=== PATIENT | female | born 1975 | race African-American/Black ===

== ENCOUNTER 2020-02-10 09:23 | Emergency (ER) | payer BC ==
[~2020-02-10] VITALS: Ht 162.6 cm; Wt 78.0 kg
--- NOTE | 2020-02-10 09:54 | Emergency Department Note ---
History of Present Illnes History of Present Illness Chief Complaint: Abdominal Complaints History of Present Illness This is a 44 year old female, with a history of HTN, who presents with a 2.5 - 3 week history of constipation. Pt states that she has a long history of constipation, and that she was diagnosed with "slow transit" constipation. Pt took a bottle of Magnesium Citrate on 01/23/20, an enema on 02/05/2020, and she drank some "smooth move" tea yesterday. She states that she "passed a few cyndi," hard stool yesterday. She states that she typically has BM 1x/week. She has had some mild nausea, but no vomiting, with mild abdominal cramping. These symptoms are similar to what she has had in the past, whenever she has had constipation. She denies any fever, chills, or dysuria. Pt states that she has taken Amitiza and Linzess in the past, without success in relieving her symptoms. Her blood pressure is also elevated today, and she states that she just took her B/P meds, [employer]. She denies any HUNTER, dizziness, visual changes, numbness or tingling. Historian: Patient Arrival Mode: Car Rn Radiation Oncology Required: No Onset (how long ago): week(s) (3) Location: general abdomen Quality: cramping Radiation: Reports non-radiation Severity: mild Onset quality: gradual Duration (how long): week(s) (3) Timing of current episode: constant Progression: unchanged Chronicity: recurrent Context: Denies recent illness, Denies recent surgery, Denies hx of DVT/PE Relieving factors: none Exacerbating factors: none Associated symptoms: Reports denies other symptoms, Reports nausea/vomiting (withtout vomiting); Denies cough, Denies loss of appetite, Denies shortness of breath Treatments prior to arrival: other (see HPI) Risk factors: "slow transit" constipation Past Medical/Family History Physician Review I have reviewed the patient's past medical and family history. Any updates have been documented here. Past Medical History Recent Fever: No Clinical Suspicion of Infectio: No New/Unexplained Change in Ment: No Past Medical History: Hypertension Other Medical History: Constipation - slow transit Past Surgical History: None Social History Smoking Cessation: Never Smoker Alcohol Use: Occasional Any Illegal Drug Use: No TB Exposure/Symptoms: No Physically hurt or threatened: No Family History Family history of heart diseas: No Other Any Pre-Existing Lines (PICC,: No Is patient up to date on immun: Yes Review of Systems Review of Systems Constitutional: Denies chills, Denies fever EENTM: Reports no symptoms Cardiovascular: Denies chest pain, Denies palpitations Respiratory: Denies cough, Denies dyspnea Gastrointestinal: Reports abdominal pain, Reports constipation, Reports nausea; Denies diarrhea, Denies vomiting Genitourinary: Denies dysuria, Denies frequency Musculoskeletal: Denies joint pain, Denies neck pain Integumentary: Denies change in hair/nails, Denies rash Neurological: Denies headache, Denies numbness, Denies paresthesia Psychological: Reports no symptoms Endocrine: Reports no symptoms Hematological/Lymphatic: Reports no symptoms Review of other systems: All other systems negative Physical Exam Related Data Allergies: Coded Allergies: Sulfa (Sulfonamide Antibiotics) (Verified Allergy, Unknown, 02/10/20) brompheniramine (Verified Allergy, Unknown, 02/10/20) phenylpropanolamine (Verified Allergy, Unknown, 02/10/20) Vital signs reviewed: Yes Physical Exam CONSTITUTIONAL Constitutional: Present well-developed, Present well-nourished; Absent distressed, Absent ill appearing HENT HENT: Present normocephalic, Present atraumatic, Present oropharynx clear/moist, Present nose normal; Absent nasal congestion, Absent rhinorrhea HENT L/R: Present left ext ear normal, Present right ext ear normal EYES Eyes: Reports PERRL, Reports conjunctivae normal NECK Neck: Present ROM normal, Present supple; Absent cervical adenopathy PULMONARY Pulmonary: Present effort normal, Present breath sounds normal CARDIOVASCULAR Cardiovascular: Present regular rhythm, Present heart sounds normal, Present capillary refill normal, Present normal rate; Absent murmur GASTROINTESTINAL Abdominal: Present soft, Present bowel sounds normal, Present other (mild, diffuse ttp, without rebound or guarding; abdomen is very soft;); Absent distension, Absent guarding, Absent mass, Absent rebound GENITOURINARY Genitourinary: Present exam deferred SKIN Skin: Present warm, Present dry; Absent rash MUSCULOSKELETAL Musculoskeletal: Present ROM normal NEUROLOGICAL Neurological: Present alert, Present oriented x 3, Present no gross motor or sensory deficits PSYCHOLOGICAL Psychological: Present mood/affect normal, Present judgement normal Results Laboratory Lab results reviewed: Yes Laboratory comments UPT - negative; Imaging Imaging results reviewed: Yes Impressions [place] [id number] Patient Name: CHRISTIAN BARROS MR #: [id number] : 1975 Age/Sex: 44/F Req #: [id number] Adm Physician: Ordered by: CAN BROUSSARD MD Report #: [id number] Location: [facility] BEDS AT [facility] Room/Bed: Procedure: HOPD/ABDOMEN COMPLETE - HOPD Exam Date: 02/10/20 Exam Time: 1015 REPORT STATUS: Signed Exam: KUB - 2 views Indication: Constipation, abdominal pain Comparison: None Findings: Nonobstructive bowel gas pattern. No free air. Stool burden appears within normal limits. No acute osseous injury. Impression: No acute radiographic abnormality. Signed by: Gila Johns MD on 02/10/2020 10:25 AM Dictated By: GILA JOHNS MD 1025 Transcribed By: MORGAN on 02/10/20 1025 COPY TO: CAN BROUSSARD MD~ Assessment & Plan Medical Decision Making MDM - Increase water intake, to at least 1 gallon of water/24 hours. - Take the Lactulose as discussed, and titrate as needed, to produce a soft stool at least twice weekly. - Follow-up with GI, for management of chronic constipation. - Follow-up with PCP, regarding elevated blood pressure reading. - Return to the ED, for severe abdominal pain or vomiting. Assessment & Plan Final Impression: (1) Constipation (2) Hypertension Depart Disposition: HOME, SELF-FDC Meds Active Scripts Lactulose (LACTULOSE) 20 Gm/30 Ml Solution, 30 ML PO TID for constipation, #1800 ML 0 Refills Prov:CAN BROUSSARD MD 02/10/20 CAN BROUSSARD MD Feb 10, 2020 09:54
--- NOTE | 2020-02-10 10:28 | Diagnostic Imaging Report ---
Exam: KUB - 2 views Indication: Constipation, abdominal pain Comparison: None Findings: Nonobstructive bowel gas pattern. No free air. Stool burden appears within normal limits. No acute osseous injury. Impression: No acute radiographic abnormality. Signed by: Katherine Lee MD on 02/10/2020 10:25 AM
[2020-02-10] MEDS ORDERED: LACTULOSE20 GM/30 M PO (10:40)
[2020-02-10 10:52] VITALS: BP 142/97
--- OUTSIDE RECORDS SUMMARY | 2020-02-10 11:15 | XMS REPORT | Continuity of Care Document ---
Author Author [facility] Organization [facility] Address [address] [place] [address] Phone Unavailable Care Team Providers Care Flight Nurse Name Role Phone Ava BROUSSARD Unavailable Problems This patient has no known problems. Allergies, Adverse Reactions, Alerts This patient has no known allergies or adverse reactions. Medications This patient has no known medications. Procedures This patient has no known procedures. Encounters Start Date/Time End Date/Time Encounter Type Admission Type [facility] Care Department Encounter ID Source 2020-02-09 17:24:00 2020-02-09 17:24:00 Emergency E [id number] 2019-02-02 12:54:00 2019-02-02 12:54:00 Outpatient [id number] 2018-12-25 10:09:00 2018-12-25 10:09:00 Emergency E [id number] Results Test Description Test Time Test Comments Results Result Comments Source ABDOMEN COMPLETE - HOPD 2020-02-10 10:24:00 [facility] [address] [place] [id number] Patient Name: CHRISTIAN BARROS MR #: [id number] : 1975 Age/Sex: 44/F Req #: [id number] Adm Physician: Ordered by: CAN BROUSSARD MD Report #: [id number] Location: [facility] Room/Bed: Procedure: [id number] HOPD/ABDOMEN COMPLETE - HOPD Exam Date: 02/10/20 Exam Time: 1015 REPORT STATUS: Signed Exam: KUB - 2 views Indication: Constipation, abdominal pain Comparison: None Findings: Nonobstructive bowel gas pattern. No free air. Stool burden appears within normal limits. No acute osseous injury. Impression: No acute radiographic abnormality. Signed by: Gila Johns MD on 02/10/2020 10:25 AM Dictated By: GILA JOHNS MD 1025 Transcribed By: MORGAN on 02/10/20 1025 COPY TO: CAN BROUSSARD MD
== END 2020-02-10 11:32 | disposition home or self-care (01) ==
LOC: FSED 09:40
DX: K59.00 Constipation, unspecified (principal); I10 Essential (primary) hypertension; R10.84 Generalized abdominal pain
CPT/HCPCS: 74022; 81025; 99283